=== PATIENT | male | born 1990 | race Caucasian/White ===

== ENCOUNTER 2024-08-17 14:03 | Inpatient (IN) | payer OTHER, MEDICAID, SELFPAY ==
[2024-08-17 14:08] VITALS: BP 153/101; PULSE 129; RESP 20; TEMP 36.8; O2SAT 95; BMI 26.6
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
[2024-08-17 15:27] LABS: Basophils # 0.1 10^3/uL (0.0-0.1); Basophils % 0.8 %; Eosinophils % 0.2 %; Hematocrit 45.5 % (37-53); Lymphocytes # 4.1 10^3/uL (0.8-4.8); Lymphocytes % 31.6 %; Mean Corpuscular HGB Conc 33.4 g/dL (30-55); Mean Corpuscular Hemoglobin 29.9 pg (27-33); Mean Corpuscular Volume 89.4 fl (82-101); Monocytes # 1.1 10^3/uL (0.2-0.9); Monocytes % 8.4 %; Neutrophils # 7.55 10^3/uL (1.8-7.7); Neutrophils % 58.7 %; Nucleated Red Blood Cells % 0 %; Platelet Count 193 10^3/cmm (157-399); Red Blood Count 5.09 10^6/uL (3.85-5.65); Red Cell Distribution Width 13.1 % (12.1-15.1); White Blood Count 12.87 10^3/uL (3.29-11.43)
[2024-08-17 15:40] LABS: Amphetamines Screen Urine Positive (Negative); Barbiturates Screen Urine Negative (Negative); Benzodiazepines Screen Urine Negative (Negative); Cocaine Screen Urine Negative (Negative); Opiate Screen Urine Negative (Negative); PCP Screen Urine Negative (Negative); THC Screen Urine Positive (Negative)
[2024-08-17 15:44] LABS: Alanine Aminotransferase 30 U/L (0-41); Albumin Level 4.8 g/dL (3.5-5.2); Alkaline Phosphatase 81 U/L (40-130); Anion Gap 19.5 (5-19); Aspartate Amino Transferase 47 U/L (0-40); Blood Urea Nitrogen 22 mg/dL (6-20); Calcium 9.5 mg/dL (8.5-10.5); Carbon Dioxide 20 mmol/L (22-29); Chloride 98 mmol/L (98-107); Creatinine Clr Calc Pharmacy 88.2396; Glomerular Filtration Rate 76.6 mL/min (90-130); Glucose 99 mg/dL (65-115); Osmolality Calculated 281 mOsm/kg (285-295); Potassium 3.5 mmol/L (3.5-5.1); Sodium 134 mmol/L (136-145); Total Bilirubin 0.9 mg/dL (0.15-1.2); Total Protein 7.8 g/dL (6.6-8.7)
[2024-08-17 15:45] LABS: Acetaminophen < 5.0 ug/mL (10-30); Alcohol Level < 10 mg/dL (0-10); Salicylate < 0.3 mg/dL (3-10)
[2024-08-17 16:18] VITALS: BP 135/72; PULSE 105; O2SAT 95
[2024-08-17] MEDS: LORazepam 2 mg/mL INJ 1 mL 1 MG IM (16:48)
[2024-08-17 16:56] VITALS: PULSE 105; O2SAT 99
[2024-08-17 17:41] VITALS: BP 85/55; PULSE 116; RESP 16; TEMP 36.4; O2SAT 95
--- NOTE | 2024-08-17 18:42 | PC.ADMIT ---
1974 [facility] [address] Admission Note:Pt states that he left [facility] today, got high on meth and then came to the crisis center. States that he was using meth the entrie time he was at [facility]. He is on a 96* hold with affidavite that will on 08/23/24 @1415. His Urine drug screen was pos. for meth and thc. Pt is rating his anxiety a 5/10 and Depression a 0/10. He denies any SI or HI, but states that he has been getting paranoid and angry lately. He states that he hears people talking and music playing at night when it's dark out. ER stated that they gave him a PRN ativan and he was doing okay with them. He states that he last used meth today, prior to coming in. He reports that he has lost 20#, just not in the mood to eat. He is reporting that he has a girlfriend and a sister that he speaks with. States that his girlfriend has his car right now and that he lives with her. He denies being homeless. States that he has been in and out of alf. He is very difficult to collect a history from at this time. He spends his time either falling asleep or responding to an internal stimuli. He is cooperative and pleasant. The patient,Sushant Dallas,34 y/o, was given written information regarding hospital policies, unit procedures and contact persons. Patient's smoking status: current every day smoker. Vital Signs - 8 hr 08/17/24 14:08 08/17/24 16:18 08/17/24 16:56 Temperature 98.2 F Pulse Rate 129 H 105 H 105 H Respiratory Rate 20 H Blood Pressure 153/101 135/72 Pulse Oximetry 95 95 99 Oxygen Delivery Method Room Air Room Air 08/17/24 17:41 08/17/24 17:44 Temperature 97.5 F L Pulse Rate 116 H Respiratory Rate 16 Blood Pressure 85/55 Pulse Oximetry 95 Oxygen Delivery Method Room Air Room Air
--- NOTE | 2024-08-17 18:49 | PC.NURSE ---
Admission Note:Pt states that he left [facility] today, got high on meth and then came to the crisis center. States that he was using meth the entrie time he was at [facility]. He is on a 96* hold with affidavite that will on 08/23/24 @1415. His Urine drug screen was pos. for meth and thc. Pt is rating his anxiety a 5/10 and Depression a 0/10. He denies any SI or HI, but states that he has been getting paranoid and angry lately. He states that he hears people talking and music playing at night when it's dark out. ER stated that they gave him a PRN ativan and he was doing okay with them. He states that he last used meth today, prior to coming in. He reports that he has lost 20#, just not in the mood to eat. He is reporting that he has a girlfriend and a sister that he speaks with. States that his girlfriend has his car right now and that he lives with her. He denies being homeless. States that he has been in and out of [facility]. He is very difficult to collect a history from at this time. He spends his time either falling asleep or responding to an internal stimuli. He is cooperative and pleasant.
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
--- NOTE | 2024-08-17 19:52 | PC.NURSE ---
when getting Shanes vitals this evening pt was sleeping with a can of Husky chewing tobacco laying on his chest. this typewriter repairer took it and put it in pocket and told charge nurse Vinicio LONG and put it in pt belonging in the safe
[2024-08-17 19:57] VITALS: BP 135/74; PULSE 96; RESP 18; TEMP 36.7; O2SAT 99
[2024-08-18 06:00] VITALS: BP 110/72; PULSE 59; RESP 16; O2SAT 98
[2024-08-18] MEDS: nicotine 4 mg lozenge MUCOUS MEM ×5 (06:39→23:54)
--- NOTE | 2024-08-18 07:20 | PC.NURSE ---
While performing her 19:30 rounds / Vital signs ANGELIQUE Barrera observed a can of Leslie Messer chewing tobacco sitting on the sleeping patients chest. ANGELIQUE Barrera confiscated this contraband. She promptly brought the contraband to my attention. I instructed her to log the item on the patients personal property form and put the tobacco in the safe with other belongings of this patient. The patient was counseled R/T the possession of unauthorized contraband on the Unit and the reason it was confiscated. Security was informed as well as Swathi Ching when she came on shift at 07:00.
--- NOTE | 2024-08-18 10:40 | PC.NURSE ---
Pt states that he slept well. Denies anxiety and depression at this time, he was sleeping when I entered the room. He denies SI/HI. Pt was very sweaty when I touched him to wake him. States that he had a bm last night. No other concerns at this time. He did not want to get out of bed to eat breakfast.
[2024-08-18 14:00] VITALS: BP 127/64; PULSE 99; RESP 18; TEMP 36.6; O2SAT 98
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
--- NOTE | 2024-08-18 15:22 | PC.OT ---
OT EVAL ATTEMPTED WITH PATIENT SLEEPING SOUNDLY; WILL ATTEMPT AGAIN AT LATER TIME.
[2024-08-18] MEDS: hyDROXYzine 25 mg Capsule 50 MG PO (16:25)
[2024-08-18 20:17] VITALS: BP 127/64; PULSE 93; RESP 16; O2SAT 95
[2024-08-19 06:00] VITALS: BP 162/71; PULSE 73; RESP 16; O2SAT 100
[2024-08-19] MEDS: nicotine 4 mg lozenge MUCOUS MEM ×7 (08:03→21:40)
--- NOTE | 2024-08-19 08:29 | PC.NURSE ---
Pt states that he slept well last night. He denies any pain. Denies SI/HI. Denies anxiety and depression. States that he had a bm yesterday. He is feeling better and looks visibly more rested. States that he is missing his girlfriend.
[2024-08-19 14:00] VITALS: BP 121/77; PULSE 104; RESP 17; TEMP 36.6; O2SAT 95
[2024-08-19] MEDS: quetiapine 25 mg Tablet PO (18:04)
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
[2024-08-19] MEDS: quetiapine 100 mg Tablet PO (21:40)
[2024-08-19] MEDS: hyDROXYzine 25 mg Capsule 50 MG PO (21:40)
[2024-08-19 21:54] VITALS: BP 136/91; PULSE 81; RESP 18; TEMP 36.7; O2SAT 100
[2024-08-20 06:00] VITALS: BP 129/78; PULSE 69; RESP 18; O2SAT 96
[2024-08-20] MEDS: hyDROXYzine 25 mg Capsule 50 MG PO ×3 (08:03→20:12)
[2024-08-20] MEDS: quetiapine 25 mg Tablet PO ×2 (08:03→18:31)
[2024-08-20] MEDS: nicotine 4 mg lozenge MUCOUS MEM ×5 (08:04→18:36)
[2024-08-20] MEDS: buPROPion XL (24 HR) 300 mg Tablet PO (08:04)
--- NOTE | 2024-08-20 09:15 | PC.NURSE ---
Morning assessment Patient calm and cooperative during morning assessment. Patient denies any needs, questions, or concerns
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
[2024-08-20 14:00] VITALS: BP 127/86; PULSE 111; RESP 17; O2SAT 96
[2024-08-20 20:07] VITALS: BP 119/75; PULSE 84; RESP 16; O2SAT 94
[2024-08-20] MEDS: trazodone 50 mg Tablet PO (20:12)
[2024-08-20] MEDS: quetiapine 100 mg Tablet PO (20:12)
[2024-08-21 06:00] VITALS: BP 124/66; PULSE 69; RESP 17; O2SAT 95
[2024-08-21] MEDS: nicotine 4 mg lozenge MUCOUS MEM ×7 (07:59→20:19)
[2024-08-21] MEDS: quetiapine 25 mg Tablet PO ×2 (08:05→18:17)
[2024-08-21] MEDS: hyDROXYzine 25 mg Capsule 50 MG PO ×3 (08:06→20:19)
[2024-08-21] MEDS: buPROPion XL (24 HR) 300 mg Tablet PO (08:06)
[2024-08-21] MEDS: ARIPiprazole 10 mg Tablet PO (10:09)
--- NOTE | 2024-08-21 10:15 | PC.NURSE ---
Pt states that he slept good last night. He denies anxiety and depression. He denies hallucinations. Denies SI/HI. States that he had a bm yesterday. Anxious to find out if he can d/c today.
[2024-08-21 14:00] VITALS: BP 114/68; PULSE 87; RESP 16; O2SAT 96
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
[2024-08-21 20:11] VITALS: BP 131/84; PULSE 98; RESP 18; TEMP 37.1; O2SAT 98
[2024-08-21] MEDS: trazodone 50 mg Tablet PO (20:19)
[2024-08-21] MEDS: quetiapine 100 mg Tablet PO (20:19)
[2024-08-22 06:00] VITALS: BP 118/76; PULSE 91; RESP 16; O2SAT 97
[2024-08-22] MEDS: nicotine 4 mg lozenge MUCOUS MEM ×3 (06:23→10:03)
[2024-08-22] MEDS: hyDROXYzine 25 mg Capsule 50 MG PO (09:00)
[2024-08-22] MEDS: ARIPiprazole 10 mg Tablet PO (09:03)
[2024-08-22] MEDS: buPROPion XL (24 HR) 300 mg Tablet PO (09:03)
[2024-08-22] MEDS: quetiapine 25 mg Tablet PO (09:04)
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
[2024-08-22 10:13] VITALS: BP 118/76; PULSE 98; RESP 16; TEMP 37.1; O2SAT 97
== END 2024-08-22 11:01 | disposition home or self-care (01) | DRG 885 ==
LOC: ER 16:31 → NP 16:54
PROVIDERS: Admitting Provider Psychiatry & Neurology Psychiatry; Emergency Provider Physician Assistant; Visit Provider Psychiatry & Neurology Psychiatry
DX: F20.0 Paranoid schizophrenia (principal); F15.159 Other stimulant abuse with stimulant-induced psychotic disorder, unspecified; F15.10 Other stimulant abuse, uncomplicated; F17.210 Nicotine dependence, cigarettes, uncomplicated; Z91.128 Patient's intentional underdosing of medication regimen for other reason; Z81.1 Family history of alcohol abuse and dependence; Z81.3 Family history of other psychoactive substance abuse and dependence
CPT/HCPCS: 36415; 80053; 80306; 80307; 85025; 96372; 97165; 99285; J2060; J9999